=== PATIENT | male | born 1990 | race African-American/Black ===

== ENCOUNTER 2016-12-24 18:45 | Emergency (ER) | payer OTHER ==
[2016-12-24 18:50] VITALS: BP 142/71; PULSE 90; TEMP 98.6; BMI 33.0
[2016-12-24] MEDS ORDERED: DIPHTH,PERTUSS(ACELL),TET 0.5 ML DISP.SYRIN IM ONE (19:21)
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
== END 2016-12-24 19:45 | disposition home or self-care (01) ==
LOC: JERFT 18:45
PROC: 3E0234Z Introduction of Serum, Toxoid and Vaccine into Muscle, Percutaneous Approach (ICD-10-PCS; principal; 2016-12-24)
DX: S60.229A Contusion of unspecified hand, initial encounter (principal); Y04.2XXA Assault by strike against or bumped into by another person, initial encounter; Y93.89 Activity, other specified; Y92.512 Supermarket, store or market as the place of occurrence of the external cause; Y99.0 Civilian activity done for income or pay
CPT/HCPCS: 73130-TC-RT; 90715; 99281-25